=== PATIENT | male | born 1990 | race Caucasian/White ===

== ENCOUNTER 2019-05-30 22:26 | Emergency (ER) | payer SELFPAY ==
[~2019-05-30] VITALS: Ht 175.2 cm; Wt 104.3 kg
[2019-05-30] MEDS ORDERED: Motrin,Rufen800 MG PO (22:37)
[2019-05-30] MEDS ORDERED: PENICILLIN-VK500 M1 PO (22:37)
== END 2019-05-30 22:46 | disposition home or self-care (01) ==
LOC: ED 22:26
DX: K08.89 Other specified disorders of teeth and supporting structures (principal); F17.200 Nicotine dependence, unspecified, uncomplicated

== ENCOUNTER 2019-06-01 21:25 | Emergency (ER) | payer SELFPAY ==
[~2019-06-01] VITALS: Ht 172.7 cm; Wt 99.8 kg
[~2019-06-01 21:25] MED LIST: Motrin,Rufen800 MG PO; PENICILLIN-VK500 M1 PO
[2019-06-01 22:41] LABS: HEMATOCRIT 48.5 % (42.0-52.0); HEMOGLOBIN 16.2 g/dl (14.0-18.0); MEAN CELL VOLUME 93.8 fl (80.0-94.0); MEAN CORPUSCULAR HGB 31.3 pg (27.0-31.0); MEAN CORPUSCULAR HGB CONC 33.4 g/dl (33.0-37.0); MEAN PLATELET VOLUME 10.4 fl (9.6-12.3); PLATELET COUNT AUTOMATED 330 10*3/uL (130-400); RED BLOOD COUNT 5.17 10*6/uL (4.50-5.90); RED CELL DISTRI WIDTH 12.3 % (0-14.5); WHITE BLOOD COUNT 15.2 10*3/uL (4.8-10.8)
[2019-06-01 22:56] LABS: ALBUMIN 4.5 gm/dl (3.1-4.5); ALKALINE PHOSPHATASE 93 U/L (45-117); BUN 11 mg/dl (7-24); CHLORIDE 106 mmol/L (98-107); POTASSIUM 3.5 mmol/L (3.5-5.1); SGOT/AST 32 IU/L (3-35); SGPT/ALT 51 U/L (12-78); SODIUM 140 mmol/L (136-145); TOTAL PROTEIN 8.6 gm/dL (6.4-8.2)
[2019-06-01 23:02] LABS: ATYPICAL LYMPHS 1 % (0-0); PLATELET SUFFICIENCY NORMAL (NORMAL); TOTAL CELLS COUNTED 100 #CELLS
[2019-06-01] MEDS ORDERED: IBU800 MG PO (23:59)
[2019-06-01] MEDS ORDERED: CLINDAMYCIN HC300 MG PO (23:59)
== END 2019-06-02 00:20 | disposition home or self-care (01) ==
LOC: ED 21:25
PROVIDERS: Student in an Organized Health Care Education/Training Program
DX: K08.89 Other specified disorders of teeth and supporting structures (principal); R51 Headache; Z79.899 Other long term (current) drug therapy; Z79.2 Long term (current) use of antibiotics

== ENCOUNTER 2020-08-20 09:49 | Emergency (ER) | payer OTHER ==
[~2020-08-20] VITALS: Wt 117.0 kg
[~2020-08-20 09:49] MED LIST changes: +CLINDAMYCIN HC300 MG PO; +IBU800 MG PO
[2020-08-20] MEDS ORDERED: METHOCARBAMOL500 M1 PO (10:41)
[2020-08-20] MEDS ORDERED: NAPROSYN500 MG PO (10:41)
== END 2020-08-20 10:53 | disposition home or self-care (01) ==
LOC: ED 09:49
DX: T14.8XXA Other injury of unspecified body region, initial encounter (principal); X58.XXXA Exposure to other specified factors, initial encounter; Y93.89 Activity, other specified; Y92.89 Other specified places as the place of occurrence of the external cause; Y99.8 Other external cause status